=== PATIENT | female | born 2000 | race Caucasian/White ===

== ENCOUNTER 2022-06-13 20:31 | Emergency (ER) | payer OTHER ==
[~2022-06-13] VITALS: Ht 167.6 cm; Wt 90.7 kg
[2022-06-13 20:31] VITALS: BP 124/90
[2022-06-13 20:35] VITALS: BP 125/83
[2022-06-13] MEDS ORDERED: ONDANSETRON 4 MG/2 ML VIAL IVP ONE (21:40)
[2022-06-13] MEDS ORDERED: NACL 0.9% 1,000 ML IV ONE (21:40)
--- NOTE | 2022-06-13 21:58 | NUR ---
PT TAKEN TO BED 3
--- NOTE | 2022-06-13 22:00 | NUR ---
PT AMBULATED TO ED 3, PT C/O ITCHING ALL OVER BODY,PT HAS HX- IV DRUG USE AND USES ANY DRUG SHE CAN GET HER HANDS OFF, PT LAYING IN BED, NO DISTRESS OBSERVED.
--- NOTE | 2022-06-13 22:28 | NUR ---
X-Ray at bedside.
[2022-06-13 23:49] VITALS: BP 134/70
--- NOTE | 2022-06-13 23:49 | NUR ---
Patient discharged with v/s stable. Written and verbal after care instructions given and explained. Patient verbalized understanding. Ambulatory with steady gait. All questions addressed prior to discharge. Advised to follow up with PMD.
== END 2022-06-13 23:49 | disposition home or self-care (01) ==
LOC: EDBD 20:31 → MED 20:31
DX: M79.18 Myalgia, other site (principal); F20.9 Schizophrenia, unspecified; F12.90 Cannabis use, unspecified, uncomplicated; F15.90 Other stimulant use, unspecified, uncomplicated
CPT/HCPCS: 73630; 81002; 81025; 99283; Q0092